=== PATIENT | male | born 1960 | race Caucasian/White ===

== ENCOUNTER 2023-01-31 08:26 | Day surgery (SDC) | payer MEDICARE, OTHER ==
[~2023-01-31] VITALS: Ht 185.4 cm; Wt 101.2 kg
[2023-01-31] MEDS ORDERED: PREG100 (08:53)
[2023-01-31] MEDS ORDERED: HYDACE10B (08:53)
[2023-01-31] MEDS ORDERED: LISI20 (08:54)
[2023-01-31] MEDS ORDERED: METF500 (08:54)
[2023-01-31] MEDS ORDERED: AMLO10 (08:54)
[2023-01-31] MEDS ORDERED: Methocarbamol500 MG (08:54)
[2023-01-31] MEDS ORDERED: ATOR80 (08:54)
[2023-01-31] MEDS ORDERED: STIOLTO RESPIMAT4 G1 (08:55)
[2023-01-31] MEDS ORDERED: VICTOZA 2-0.6 MG/0.1 (08:55)
[2023-01-31] MEDS ORDERED: INSULANI (08:55)
[2023-01-31] MEDS ORDERED: ALBU8HFA2 (08:56)
[2023-01-31] MEDS ORDERED: Aspir 8181 MG (08:57)
[2023-01-31 11:01] VITALS: BP 134/77
== END 2023-01-31 11:03 | disposition home or self-care (01) ==
LOC: ORSCSDS 08:26
PROVIDERS: Internal Medicine Gastroenterology
PROC: 0DBM8ZX Excision of Descending Colon, Via Natural or Artificial Opening Endoscopic, Diagnostic (ICD-10-PCS; principal; 2023-01-31 09:30)
PROC: 0DBL8ZX Excision of Transverse Colon, Via Natural or Artificial Opening Endoscopic, Diagnostic (ICD-10-PCS; principal; 2023-01-31 09:30)
PROC: 0DBP8ZX Excision of Rectum, Via Natural or Artificial Opening Endoscopic, Diagnostic (ICD-10-PCS; principal; 2023-01-31 09:30)
PROC: 0DBN8ZX Excision of Sigmoid Colon, Via Natural or Artificial Opening Endoscopic, Diagnostic (ICD-10-PCS; principal; 2023-01-31 09:30)
DX: Z12.11 Encounter for screening for malignant neoplasm of colon (principal); D12.3 Benign neoplasm of transverse colon; K63.5 Polyp of colon; K62.1 Rectal polyp; K57.30 Diverticulosis of large intestine without perforation or abscess without bleeding; K64.8 Other hemorrhoids; E11.9 Type 2 diabetes mellitus without complications; I10 Essential (primary) hypertension; E78.5 Hyperlipidemia, unspecified; F17.210 Nicotine dependence, cigarettes, uncomplicated; Z79.4 Long term (current) use of insulin; Z79.82 Long term (current) use of aspirin; Z79.899 Other long term (current) drug therapy
CPT/HCPCS: 82947; 88305; J2250; J2704; J7120

== ENCOUNTER 2024-07-16 09:20 | Day surgery (SDC) | payer OTHER ==
[~2024-07-16] VITALS: Ht 185.4 cm; Wt 93.7 kg
[~2024-07-16 09:20] MED LIST: ALBU8HFA2; AMLO10; ATOR80; Aspir 8181 MG; HYDACE10B; INSULANI; LISI20; Lactated Ringer's 1,000 ML IV ONE; METF500; Methocarbamol500 MG; PREG100; STIOLTO RESPIMAT4 G1; VICTOZA 2-0.6 MG/0.1; propofoL 50 ML IV ONE
[2024-07-16] MEDS ORDERED: Lactated Ringer's 1,000 ML IV ONE (09:59)
[2024-07-16] MEDS ORDERED: OZEMPIC0.25 MG/02 (10:18)
--- NOTE | 2024-07-16 10:40 | NUR ---
07/16/24 1040 Inés Tavares PT. VERBALIZES HAVING PAIN IN HIS LOWER BACK & CENTER OF SPINE RATING A "5". PT. TOOK HIS PAIN MED THIS AM.
[2024-07-16 12:31] VITALS: BP 133/79
== END 2024-07-16 12:00 | disposition home or self-care (01) ==
LOC: ORSCSDS 09:20
PROVIDERS: Internal Medicine Gastroenterology
PROC: 0DBN8ZX Excision of Sigmoid Colon, Via Natural or Artificial Opening Endoscopic, Diagnostic (ICD-10-PCS; principal; 2024-07-16 11:00)
PROC: 0DBL8ZX Excision of Transverse Colon, Via Natural or Artificial Opening Endoscopic, Diagnostic (ICD-10-PCS; principal; 2024-07-16 11:00)
PROC: 0DBP8ZX Excision of Rectum, Via Natural or Artificial Opening Endoscopic, Diagnostic (ICD-10-PCS; principal; 2024-07-16 11:00)
DX: D12.3 Benign neoplasm of transverse colon (principal); K63.5 Polyp of colon; K62.1 Rectal polyp; K57.30 Diverticulosis of large intestine without perforation or abscess without bleeding; K64.8 Other hemorrhoids; Z86.0101 Personal history of adenomatous and serrated colon polyps; I10 Essential (primary) hypertension; E78.5 Hyperlipidemia, unspecified; Z79.84 Long term (current) use of oral hypoglycemic drugs; Z79.82 Long term (current) use of aspirin; Z79.85 Long-term (current) use of injectable non-insulin antidiabetic drugs; Z79.899 Other long term (current) drug therapy
CPT/HCPCS: 82947; 88305; J2704; J7120